=== PATIENT | female | born 2000 | race African-American/Black ===

== ENCOUNTER 2023-10-23 20:25 | Emergency (ER) | payer SELFPAY ==
[~2023-10-23] VITALS: Ht 177.8 cm; Wt 78.0 kg
[2023-10-23 21:02] VITALS: BP 133/64; PULSE 82; RESP 18; TEMP 98; O2SAT 100
== END 2023-10-23 22:46 | disposition left against medical advice (07) ==
LOC: EDBD → ER 20:25
DX: N63.0 Unspecified lump in unspecified breast (principal); Z53.21 Procedure and treatment not carried out due to patient leaving prior to being seen by health care provider
CPT/HCPCS: 81025; 99281

== ENCOUNTER 2023-10-24 15:41 | Emergency (ER) | payer MEDICAID ==
[~2023-10-24] VITALS: Ht 185.4 cm; Wt 90.0 kg
[2023-10-24 15:50] VITALS: O2SAT 99
[2023-10-24 20:41] VITALS: BP 132/72; PULSE 73; RESP 18; TEMP 98
== END 2023-10-24 20:42 | disposition home or self-care (01) ==
LOC: ER 15:41
DX: N63.0 Unspecified lump in unspecified breast (principal)
CPT/HCPCS: 76641; 99284

== ENCOUNTER 2023-11-24 13:52 | Emergency (ER) | payer MEDICAID ==
[~2023-11-24] VITALS: Ht 177.8 cm; Wt 75.0 kg
[2023-11-24 14:05] VITALS: BP 126/77; PULSE 72; RESP 20; TEMP 98.2; O2SAT 100
[2023-11-24] MEDS ORDERED: NAPR-1176 MT (15:52)
== END 2023-11-24 16:28 | disposition home or self-care (01) ==
LOC: ER 13:52
DX: N63.0 Unspecified lump in unspecified breast (principal)
CPT/HCPCS: 99281; 99282